=== PATIENT | female | born 1980 | race Caucasian/White ===

== ENCOUNTER → 2021-12-19 | Day surgery (SDC) | payer BC | END | disposition home or self-care (01) | LOC: BICULT 12:46 | PROVIDERS: ATTEND Obstetrics & Gynecology | PROC: 0HBT3ZX Excision of Right Breast, Percutaneous Approach, Diagnostic (ICD-10-PCS; principal; 2021-12-19) | DX: D24.1 Benign neoplasm of right breast (principal); N60.01 Solitary cyst of right breast | CPT/HCPCS: 19083; 88305 ==